=== PATIENT | female | born 1940 | race Caucasian/White ===

== ENCOUNTER 2019-03-11 17:27 | Inpatient (IN) | payer OTHER ==
[~2019-03-11] VITALS: Ht 157.5 cm; Wt 52.3 kg
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
[2019-03-11 19:45] VITALS: BP 126/58
--- NOTE | 2019-03-11 22:29 | NUR ---
PT EATING DINNER IN DAY ROOM UPON ARRIVAL TO SHIFT. WHEN NURSE INTRODUCED SELF TO PT, PT SHOOK NURSES HAND. GOOD EYE CONTACT, SMILING, WITH VERBAL INTERACTION. PT INITIALLY QUESTIONING NEED TO TAKE HS MEDS BUT DID COMPLY. PT NOT RESISTIVE TO HS ADL CARE. PT STEADY WITH TURN AND PIVOT TO BED FROM W/C.
[2019-03-12 08:33] VITALS: BP 115/69
--- NOTE | 2019-03-12 14:50 | NUR ---
DYSPHORIC MOOD SO FAR THIS SHIFT-IRRITABLE WHEN APPROACHED WITH AM MEDICATIONS STATING SHE DIDN'T WANT TO TAKE THEM-WHEN INFORMEWD THAT IT WAS HER HEART MEDICATIONS STATES "I DON'T CARE"SPIT OUT SEVERAL MEDICATIONS WHEN NURSE TURNED AROUND TO GET EXTRA FLUIDS PER PT REQUEST. REFUSING TO HAND THEM OVER TO NURSE AND WHEN NA EVENTUALLY DID GET THEM FROM HER 2-3 FRAGMENTS OF PILLS RECOVERD UNABLE TO BE IDENTIFIED. RESTLESS-REFUSING TO ATTEND GROUPS OR SIT AND INTERACT WITH PEERS SHE SPENDS FREE TIME WHEELING WC UP AND DOWN HALLWAYS STATING SHE IS GOING HOME WITH HER SON AT 2PM. ORINETED TO NAME ONLY-IMPULSIVE BEHAVIOR SHE IS NOTED TO BE LEANING FORWARD IN CHAIR-ATTEMPTING TO GET UP ON OWN-FACE IS HEAVILY BRUISED FROM RECENT FALL-PRIOR TO ADMIT.
--- NOTE | 2019-03-12 17:18 | NUR ---
GLENYS called and spoke with pt's son Tony [phone] and he reported that he expects his mom to return to OP rehab once she is stable. Glenys sent updates to [facility] rehab [phone].
[2019-03-12 23:58] VITALS: BP 128/74
--- NOTE | 2019-03-13 03:30 | NUR ---
IRRITABLE AND NEGATIVE EARLY IN SHIFT. SPENT SOME TIME LISTENING TO HER FRUSTRATIONS, AND SHE SEEMED TO CALM. ESCORTED TO BED. PT TOOK HS PILLS ONE AT A TIME FOLLOWED BY H2O W/O COMPLAINT. SLEPT WELL THROUGH THE NIGHT TO THIS POINT.
--- NOTE | 2019-03-13 11:23 | NUR ---
ASSUMED PATIENT CARE AT 0730 A.M. PATIENT ASSISTED UP FOR BREAKFAST. NON-COMPLIANT WITH MEDICATIONS WITH ANOTHER NURSE, WHO WAS ASSISTING WITH HER MED PASS. THIS NURSE ATTEMPTED MED PASS WITHOUT SUCCESS; HOWEVER, PATIENT DID SAY THAT SHE WOULD RAFI BARRETO [facility] SON TOLD HER TO. SON ARRIVED FOR VISITING HOURS, NURSE BROUGHT MEDS, PATIENT TOOK ALL AM MEDICATIONS AT THAT TIME. FLAT AFFECT, QUIET MOOD. CONTINUE TO MONITOR.
[2019-03-13 13:58] VITALS: BP 118/60
--- NOTE | 2019-03-13 17:25 | NUR ---
PATIENT PARTICIPATED IN AFTERNOON R.T., ATTENDED S.W. GROUP. REFUSED TO TAKE P.M. 1600 AND 1700 MEDICATIONS UNTIL HER SON ARRIVED FOR VISITING HOURS. PATIENT VERY RUDE TO THIS NURSE. HAS EATEN VERY LITTLE DINNER, ALSO WOULD NOT EAT WHILE HER SON WAS EITHER.
[2019-03-13 20:00] VITALS: BP 117/57
[2019-03-14 00:53] VITALS: BP 117/57
--- NOTE | 2019-03-14 03:35 | NUR ---
PT OUT IN DAY AREA AT [facility] OF SHIFT. ALLOWED STAFF TO DO PHYSICAL ASSESSMENT. SPOKE AT LENGTH WITH THIS NURSE ABOUT FRUSTRATION AND ANGER. ENCOURAGED HER TO BE HONEST AND FORTHCOMING WITH OTHER STAFF AND NOT BE SO SURLY. SHE SEEMS TO UNDER STAND BETTER HER CHOICES. TOOK HS MEDS W/O PROBLEM, AND PROMISED SHE WOULD TRY TO EAT BETTER, AND BE MORE OPEN WITH STAFF. SLEPT WELL THROUGH THE NIGHT TO THIS POINT.
[2019-03-14 10:00] VITALS: BP 115/68
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
--- NOTE | 2019-03-14 16:44 | NUR ---
PATIENT REFUSED HER 3PM DOSE OF QUEITIPINE 50 MG P.O. VERY IRRITABLE AND ANGRY MOOD. DID NOT STRIKE OR SWING AT NURSE AT THAT TIME. HOWEVER, SHORTLY AFTER 3:30, PATIENT BEGAN GOING TO EXIT DOORS, TRYING TO OPEN THE DOOR TO GET OUT. NURSE APPROACHED HER AND EXPLAINED THAT SHE CANNOT LEAVE, AT WHICH TIME PATIENTTURNED AROUND IN HER W/C AND STATED THAT "SOME OF THESE DOORS OPEN." NURSE ATTEMPTED TO TALK TO PATIENT CALMLY WITHOUT SUCCESS. PATIENT THEN WENT MELISSA TO THE END OF THE HALLWAY AND SAT IN FRONT OF THE WINDOW, SCREAMING THAT SHE WANTED TO LEAVE. INTERCEPTED BY SEVERAL STAFF MEMBERS--Chon EWING, TWO DISCHARGE RN'S ON DUTY, AND ANOTHER NURSE. NURSE WENT TO [facility] TO DRAW UP OLANZAPINE 2.5.MG IM, PATIENT TAKEN TO HER ROOM AND GIVEN IM INJECTION OF OLANZAPINE. PATIENT REMAINED ANGRY, STRIKING AND HITTING STAFF MEMBERS. PATIENT'S SON ARRIVED FOR VISITING HOURS, CAME TO PATIENT'S ROOM. NURSE RELAYED ABOVE INFORMAITON TO SON. AFTER SEVERAL MINUTES OF PATIENT SCREAMING AT HER SON AND TRYING TO LEAVE HER ROOM, NURSE CONTACTED NURSE PRACTIONER, Kranthi OLSON, WHO ORDERED AN ADDITIONAL 5 MG IM OLANAZPIVE HEIDIE WITH PATIENT NOW IN HER ROOM.
--- NOTE | 2019-03-14 17:15 | NUR ---
PATIENT'S 1700 MEDICATIONS NOT GIVEN R/T PATIENT'S RESISTIVE, COMBATIVE BEHAVIOR. LIVER TRIMMER RELIEVING NURSE, R/T NEED TO GIVE 1700 MEDICATIONS TO OTHER PATIENT'S ON THE UNIT.
--- NOTE | 2019-03-14 19:34 | NUR ---
ASSUMED CARE @ 1900, IN W/C IN DAY ROOM. WILL CONTINUE TO MONITOR Q 12 MINUTES FOR PATIENT SAFETY.
[2019-03-14 19:35] VITALS: BP 150/86
--- NOTE | 2019-03-14 20:22 | NUR ---
IN DAY ROOM IN W/C. ASSESSMENT COMPLETE, PT FINISHING MOZAMBICAN ICE SNACK. A&OX2-3. KNOWS THAT SHE DOES NOT LIKE THE PRESIDENT, BUT CANT REMEMBER HIS NAME. HRRR, LUNGS CTA ALL JASMINE, ABD n X 4 Q, REPORTS BM TODAY. WILL CONTINUE TO MONITOR Q 12 MINUTES FOR PT SAFETY.
--- NOTE | 2019-03-14 23:11 | NUR ---
IN ROOM SEATED IN W/C. INCONTINENT OF BLADDER ON THE FLOOR NEXT TO W/C AND BED. MEDS GIVEN IN APPLESAUCE, COMPLIANT WITH MEDICATION ADMINISTRATION. ABLE TO STAND AND BEAR WEIGHT TO PIVOT AND TRANSFER TO BED. BED IN LOW POSITION, BED ALARM ON, CHUCKS ON THE BED, PT NOT WEARING BRIEF (DOES WEAR ONE DURING THE DAY). WILL CONTINUE TO MONITOR Q 12 MINUTES FOR PATIENT SAFETY.
[2019-03-15 01:28] VITALS: BP 150/86
--- NOTE | 2019-03-15 05:50 | NUR ---
SLEPT 7.8 HOURS OVERNIGHT.
[2019-03-15 07:56] VITALS: BP 111/69
--- NOTE | 2019-03-15 15:26 | NUR ---
HAS BEEN SITTING IN DAYROOM WITH PEERS AND ATTENDING GROUP WITH [id number] TO NAME ONLY-SMILING/PLEASANT DURING 1;1 THIS RN BUT CONTINUES TO STATE SHE IS LEAVING "IN A FEW HOURS" WITH HER SON MIRNA.NOT RESTLESS OR IRRITABLE PREVIOUS DAYS-COMPLIENT WITH TAKING MEDS CRUSHED IN ICE CREAM-0900 MED PASS TOOK APPROX 80 PERCENT OF MEDS-ALL BUT LAST BITE
--- NOTE | 2019-03-15 18:11 | NUR ---
PT. AT 1700 WAS YELLING, CURSING AT STAFF, PINCHING, KICKING AT STAFF. SHE WAS BANGING ON THE DOORS, YELLING. SHE WAS NOT REDIRECTABLE. STAFF TIMES 3 TRIED TO REDIRECT HER, BUT SHE WAS UNREDIRECTABLE. IM OLANZAPINE 2.5 MG GIVEN IN RT. DELTOID. DR. MACIEL NOTIFIED OF EVENTS.
[2019-03-15 20:00] VITALS: BP 103/78
[2019-03-15 22:14] VITALS: BP 103/78
--- NOTE | 2019-03-16 04:19 | NUR ---
OUT WITH PEERS BUT QUIET. SULLEN AND SURLY TOWARD STAFF. RESISTANT TO TAKING MEDS BUT FINALLY AGREED. CONSUMED EVENING SNACK, AND WAS IN BETTER SPIRITS WHEN ASSISTING HER TO BED.
[2019-03-16 08:13] VITALS: BP 130/63
--- NOTE | 2019-03-16 10:33 | NUR ---
ASSUMED PATIENT CARE AT 0700. PATIENT FRIENDLY MOOD, PLEASANT AFFECT, NO BEHAVIORS OF THIS WRITING. COMPLIANT WITH MEDICATIONS, WHOLE IN APPLESAUCE.
[2019-03-16 11:46] VITALS: BP 130/63
--- NOTE | 2019-03-16 18:03 | NUR ---
LATE NOTES: AT ABOUT 1300 P.M., PATIENT SITTING IN D.R. ON SOFA; R.ANGIE Bowser, OBSERVED THAT PATIENT NEEDED TO BE CHANGED R/T FOUL-SMELLING ODOR, R/T INCONTINENT B.M. PATIENT BECAME RESISTIVE TO CARE,NOT WANTING TO GET UP TO GO TO HER ROOM TO BE CHANGED. THIS NURSE WAS ABLE TO ENCOURAGE HER TO STAND UP; PATIENT AMBULATING MOST OF THE WAY TO HER ROOM, ASSISTANCE OF WALKER. HOWEVER, STOPPED WHEN ALMOST TO THE DOOR TO HER ROOM. STAFF SECURED A W/C TO GET PATIENT INTO ROOM TO CHANGE. PATIENT COMBATIVE, KICKING, HITTING STAFF, SWEARING, CUSSING. PATIENT WAS CALM UNTIL AROUND 1630, BECAME COMBATIVE WHILE HER SON WAS VISITING. ESCALATED INTO EXTREME AGITATION WHEN DR. MACIEL ATTEMPTED TO REDIRECT PATIENT. STAFF ASSIST TO ROOM. NEW ORDER PER DR. MACIEL FOR GEODON 10 MG I.M. PATIENT DROWSY FOR A SHORT TIME, NOW UP IN DR FOR DINNER.
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
--- NOTE | 2019-03-17 03:23 | NUR ---
ASSUMED CARE FROM DAY SHIFT PT UP IN WHEELCHAIR TALKING WITH ANOTHER PT , APPEARS CHEERFUL , BUT LISTENING TO CONVERSATION , WHAT PT IS SAYING IS NOT MAKING SENSE OR HAVE PURPOSE.TOOK HS MEDICATION WITHOUT ISSUES , HS CARE GIVEN PRIOR TO ASSITING TO BED. RESTED WELL THROGUHOUT HOULRY ROUNDS WILL CONITNUE WITH FREQ CHECKS FOR SAFETY AND WILL REPORT CHANGES OR ABNORMAL.
[2019-03-17 08:00] VITALS: BP 113/55
--- NOTE | 2019-03-17 14:02 | NUR ---
The staff toxicologist informed me that Joycelyn would not take her afternoon medication, and would not let the INFORMATION CONSULTANT changed her brief. I spoke with Joycelyn and tried to get her to take her medication (seroquel). Joycelyn was verbally abusive toward me. She was calling me and other nursing staff bitch. The nurse tried to give Joycelyn the seroquel in ice cream. Joycelyn stated 'you eat it bitch.' Joycelyn was given an zyprexa 5 mg IM. Joycelyn would not let the INFORMATION CONSULTANT change her brief. Joycelyn was urine soaked.
[2019-03-17 15:18] VITALS: BP 113/55
--- NOTE | 2019-03-17 15:27 | NUR ---
ASSUMED CARE AT 0700 THIS MORNING. PT. UP ON THE UNIT FOR MEALS. DR. MACIEL SAW PT. THIS MORNING AND REMARKED THAT SHE NEEDED HER 3 PM MEDICATION EARLIER, BEFORE 3 SHE MAY NOT NEED A SHOT IN THE AFTERNOON. SHE WAS OFFERED HER 3 PM MEDICATION AT 2 PM, BUT REFUSED IT. SHE WAS IRRITABLE, CURSING AT STAFF CALLING THIS HOUSING LIAISON A BITCH, SHONA. VIR[place]IA Aburto, CNC MANAGER ALSO TRIED TO TALK TO HER ABOUT TAKING HER MEDICATION. SHE CONTINUED TO TELL STAFF TO "TAKE IT YOUR SELF, YOUR A BITCH!". SHE CONTINUED TO BE IRRITABLE, CALLING NAMES. HER MEDICATION WAS CRUSHED, PUT IN ICE CREAM. THIS MADE NO EFFECT ON THE PT. PT. WAS THEN GIVEN A 5 MG OLANZAPINE IM. AFTER THE SHOT, SHE FELL ASLEEP IN HER W/C.
[2019-03-17 19:34] VITALS: BP 98/57
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
[2019-03-18 08:02] VITALS: BP 137/79
[2019-03-18 10:59] VITALS: BP 137/79
--- NOTE | 2019-03-18 11:34 | NUR ---
ASSUMED CARE AT 0700 THIS MORNING. PT. UP IN W/C AND IN DINING ROOM. SHE SIS SITTING QUIETLY, HUNCHED OVER (FORWARD). SHE IS COOPERATIVE WITH TAKING HER MORNING MEDICATIONS. SHE IS SAD SHE RECEIVED WORD YESTERDAY THAT HER DAUGHTER . SHE WAS CONFUSED LAST NOC STATING IT WAS HER SISTER THAT . SHE WAS TALKING TODAY ABOUT WANTING TO GO TO THE THIS WEEKEND. GIVEN THE INFORMATION.
[2019-03-18 19:33] VITALS: BP 125/68
--- NOTE | 2019-03-18 21:11 | NUR ---
PT PROPELING SELF IN W/C IN HALLS AND DAY ROOM. COMPLIANT WTIH HS MEDS AND SNACK. GOOD EYE CONTACT WHEN TALKING WITH STAFF.
[2019-03-19 08:45] VITALS: BP 116/59
[2019-03-19] MEDS ORDERED: PACERONE 200 M200 M1 PO (12:32)
[2019-03-19] MEDS ORDERED: ARICEPT 5 MG TAB5 MG PO (12:32)
[2019-03-19] MEDS ORDERED: COREG3.125 MG PO (12:33)
[2019-03-19] MEDS ORDERED: ASA81BEC PO (12:34)
[2019-03-19] MEDS ORDERED: DEPAKOTE ER250 MG PO (12:34)
[2019-03-19] MEDS ORDERED: SEROQUEL 100 M100 M2 PO (12:35)
[2019-03-19] MEDS ORDERED: LASIX 20 MG TAB20 MG PO (12:35)
[2019-03-19] MEDS ORDERED: MIRALAX17 GM PO (12:36)
[2019-03-19] MEDS ORDERED: PEPCID20 MG PO (12:36)
[2019-03-19] MEDS ORDERED: SYNTHROID75 MCG PO (12:36)
[2019-03-19 13:15] VITALS: BP 116/59
--- NOTE | 2019-03-19 13:15 | NUR ---
Patient Name: CRISTEL MORIN Admission Date: 03/11/19 DISCHARGE PLAN: Pt will d/c home with son Tony. Care Assessment: Pt was assessed by Dr. James, and diagnosed with Major Neurocognitive Disorder with Behavior Disturbance. Level II Assessment: None Transportation: Pt will be transported home by her son Tony Special Instructions/Notes: POt will need services. Pt son Tony mention that he has made arrangements for private duty nurse to be attentive her care and wellbeing. DISCHARGE TO FACILITY: Home Facility: Phone: Fax: Address: Contact Name: Phone: PCP: Psychiatrist: [facility]
--- NOTE | 2019-03-19 16:28 | NUR ---
DISCHARGE INSTRUCTIONS REVIEWED WITH SON-MANUEL BRADLEY PATIENCE WITH PT IN ATTENDENCE-REVIEWED RX,DC MEDICATIONS,USAGES,INDICATIONS AND SCHEDULE-FOLLOW UP APPOINTMENTS AND RECOMMENDATIONS REVIEWED WITH SON/PT WELL-THEY STATE UNDERSTANDING AND DENY ANY QUESTIONS OR CONCERNS RE MEDS/FU OR DC INSTRUCTIONS. PT IS PLEASANT AND COOPERATIVE AT THE TIME OF [id number] GOODBYE TO STAFF AND PEERS. DENIES C/O PAIN/DISCOMFORT. DC VIA WHEELCHIR ACCOMPNIED BY HOSPITAL STAFF AND SON. RX SENT WITH TINY BRADLEY.
--- NOTE | 2019-03-22 07:50 | EKG ---
[place] [address] [facility] [place] [address] ELECTROCARDIOGRAM REPORT Name: CRISTEL MORIN Room #: [address] [place] [address] IN M.R.#: [id number] ������������������ Admission: 03/11/19 ������������������ Attend Phys: Zeeshan James DO Discharge: 03/19/19 ������������������ Date of : 44 Report #: [id number] ����������������������������������������������������������������� [id number] THIS REPORT FOR: //name// [facility] Test Date: 2019-03-19 Test Time: 13:05:52 Pat Name: CRISTEL MORIN Department: Room: [facility] Gender: F Student Support Services Director: Fili MELGAR : 1940 Requested By: Zeeshan James Order Number: [id number] MD: Patrice Gomez Measurements Intervals [place] Rate: 80 P: VT: 137 QRS: 33 QRSD: 97 T: 182 QT: 407 QTc: 470 Interpretive Statements Atrial-paced rhythm Early R-wave progression Nonspecific ST segment abnormality No previous ECG available for comparison Electronically Signed On 03-22-2019 7:50:22 CDT by Patrice Gomez [email or web address] ��������������������������������������������� <ELECTRONICALLY SIGNED> ���������������������������������������� By: Patrice Gomez MD, [facility] ��������������������������������������������� 03/22/19 0750 1305 1305 Patrice Gomez MD, [facility] /EPI
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
== END 2019-03-19 16:37 | disposition home or self-care (01) | DRG 57 ==
LOC: SBH 17:27
PROVIDERS: ADMIT Psychiatry & Neurology Psychiatry
DX: G30.9 Alzheimer's disease, unspecified (principal); F02.81 Dementia in other diseases classified elsewhere, unspecified severity, with behavioral disturbance; I25.10 Atherosclerotic heart disease of native coronary artery without angina pectoris; I10 Essential (primary) hypertension; E78.5 Hyperlipidemia, unspecified; I48.0 Paroxysmal atrial fibrillation; I49.5 Sick sinus syndrome; E03.9 Hypothyroidism, unspecified; M17.0 Bilateral primary osteoarthritis of knee; R32 Unspecified urinary incontinence; Z79.82 Long term (current) use of aspirin; Z79.899 Other long term (current) drug therapy; Z95.0 Presence of cardiac pacemaker; Z88.1 Allergy status to other antibiotic agents; Z88.0 Allergy status to penicillin; Z81.8 Family history of other mental and behavioral disorders; Z82.3 Family history of stroke; Z82.49 Family history of ischemic heart disease and other diseases of the circulatory system; Z95.1 Presence of aortocoronary bypass graft
CPT/HCPCS: 10880